=== PATIENT | male | born 1995 | race Two or more races ===

== ENCOUNTER 2020-03-12 19:21 | Emergency (ER) | payer OTHER ==
--- NOTE | 2020-03-12 20:49 | RADIOLOGY REPORT (SQ) ---
EXAM DESCRIPTION: XR CHEST 1 VIEW COMPLETED DATE/TME: 03/12/2020 19:52 CLINICAL HISTORY: 24 years, Male, fever/ cough COMPARISON: None. NUMBER OF VIEWS: 1 TECHNIQUE: Portable AP upright view the chest was obtained at 8:19 PM LIMITATIONS: Relatively overexposed lung preciado FINDINGS: The heart size is normal. Lungs appear clear. There is no definite pleural effusion or pneumothorax. No gross acute bony abnormality is seen. IMPRESSION: No acute abnormality as above. copyright 2010 [employer]- All Rights Reserved
--- NOTE | 2020-03-12 21:23 | ER Document Report ---
Entered by ELSY AGRAWAL SCRIBE 03/12/202006 Acting as scribe for:ARLEEN EDOUARD DO ED General - General Chief Complaint: Cough Stated Complaint: FEVER,COUGH,SORE THROAT,SHORTNESS OF BREATH Time Seen by Provider: 03/12/20 19:43 Information source: Patient Notes: This 24 year old male patient presents to the emergency department today with complaints of a cough, sore throat, and fever for the past x2 days. Patient states yesterday his symptoms worsened and reports nasal congestion, body aches, loss of smell, and loss of taste. Patient states he is a [employer] and works at the [employer]. Denies medical history. - Related Data Allergies/Adverse Reactions: No Known Allergies Allergy (Verified 03/12/20 19:36) Past Medical History - General Information source: Patient - Social History Smoking Status: Never Smoker Cigarette use (# per day): No Occupation: [employer] Family History: Reviewed & Not Pertinent Patient has homicidal ideation: No - Medical History Medical History: Negative Surgical Hx: Negative Review of Systems - Review of Systems Constitutional: See HPI, Fever EENT: See HPI, Nose congestion, Throat pain, Other - loss of smell, loss of taste Cardiovascular: No symptoms reported Respiratory: See HPI, Cough Gastrointestinal: No symptoms reported Genitourinary: No symptoms reported Male Genitourinary: No symptoms reported Musculoskeletal: No symptoms reported Skin: No symptoms reported Hematologic/Lymphatic: No symptoms reported Neurological/Psychological: No symptoms reported -: Yes All other systems reviewed and negative Physical Exam - Vital signs Vitals: Temp Pulse Resp BP Pulse Ox 100.4 F 109 H 16 135/86 H 99 03/12/20 19:29 03/12/20 19:29 03/12/20 19:29 03/12/20 19:29 03/12/20 19:29 - General General appearance: Appears well, Alert - HEENT Head: Normocephalic, Atraumatic Eyes: Normal Pupils: PERRL Nasal: Other - Congested - Respiratory Respiratory status: No respiratory distress Chest status: Nontender Breath sounds: Normal Chest palpation: Normal - Cardiovascular Rhythm: Regular Heart sounds: Normal auscultation Murmur: No - Abdominal Inspection: Normal Distension: No distension Bowel sounds: Normal Tenderness: Nontender - Extremities General upper extremity: Normal inspection, Normal ROM General lower extremity: Normal inspection, Normal ROM. No: Edema - Neurological Neuro grossly intact: Yes Cognition: Normal Orientation: AAOx4 [place] Coma Scale Eye Opening: Spontaneous [place] Coma Scale Verbal: Oriented Navarro Coma Scale Motor: Obeys Commands Austin Coma Scale Total: 15 Speech: Normal - Psychological Associated symptoms: Normal affect, Normal mood - Skin Skin Temperature: Warm Skin Moisture: Dry Skin Color: Normal Course - Re-evaluation Re-evalutation: 03/12/20 21:58 MDM Healthy 24 year old sick for 2 days. Cough and fever and achey. Flu A and B +. Also educated re Covid. He expressed understanding and will self isolate. - Vital Signs Vital signs: Temp Pulse Resp BP Pulse Ox 100.4 F 109 H 16 135/86 H 99 03/12/20 19:29 03/12/20 19:29 03/12/20 19:29 03/12/20 19:29 03/12/20 19:29 - Diagnostic Test Radiology reviewed: Image reviewed, Reports reviewed Discharge - Discharge Clinical Impression: Influenza A, Influenza B, Advice given about COVID-19 virus infection Condition: Stable Disposition: HOME, SELF-CARE Instructions: Fever (OM), Acetaminophen, Viral Syndrome (OM), COVID-19 Guidance for Persons Under Investigation, Influenza ([facility]) Additional Instructions: Rest, plenty of fluids. Self isolate until you feel better. Please return here for chest pain, shortness of breath or other problems or concerns. Your medicine was sent to [facility] in [place]. Take some zinc also while your sick and vitamin C. I personally performed the services described in the documentation, reviewed and edited the documentation which was dictated to the scribe in my presence, and it accurately records my words and actions.
[2020-03-12 21:31] LABS: A TYPE INFLUENZA AG POSITIVE (NEGATIVE); B INFLUENZA AG POSITIVE (NEGATIVE)
[2020-03-12] MEDS ORDERED: OSELTAMIVIR PHOSPHATE 75 MG CAPSULE PO ONE (21:49)
[2020-03-12 22:08] VITALS: BP 136/82
== END 2020-03-12 22:09 | disposition home or self-care (01) ==
LOC: ER 19:21
DX: J10.1 Influenza due to other identified influenza virus with other respiratory manifestations (principal); R05 Cough; R50.9 Fever, unspecified; R09.81 Nasal congestion; R43.8 Other disturbances of smell and taste; Z20.828 Contact with and (suspected) exposure to other viral communicable diseases
CPT/HCPCS: 99284; 87635; 87804; 71045; J3490; C9803